=== PATIENT | female | born 1980 | race Two or more races ===

== ENCOUNTER 2025-05-14 17:50 | Inpatient (IN) | payer OTHER ==
[~2025-05-14] VITALS: Ht 157.5 cm; Wt 102.0 kg
[2025-05-14] VITALS (7 sets, daily range): BP systolic 109–150; BP diastolic 60–86; PULSE 85–94; RESP 16–18; TEMP 97.7–98.5; O2SAT 99–100
[2025-05-14] MEDS: SODIUM CHLORIDE 0.9% 500 ML IV ONE (19:10)
[2025-05-14 19:23] LABS: PLATELET COUNT (AUTO) 340 K/uL (150-450); RED BLOOD CELL COUNT(AUTO) 3.26 MIL/uL (4.00-5.20); RED CELL DISTRIBUTION WIDTH 21.2 % (11.5-14.5); WHITE BLOOD COUNT (AUTO) 8.8 K/uL (4.5-11.0)
[2025-05-14 19:27] LABS: CALCIUM, TOTAL 7.9 mg/dL (8.8-10.5); CREATININE 0.57 mg/dL (0.60-1.30); GLOMERULAR FILTR. RATE CALC > 60 mL/min (>60); GLUCOSE,RANDOM 89 mg/dL (70-110); SODIUM SERUM 139 mmol/L (136-145); UREA NITROGEN, BLOOD 6 mg/dL (7-18)
[2025-05-14 19:49] LABS: RBC MORPHOLOGY COMMENT ABNORMAL RBC MORPH
[2025-05-14] MEDS ORDERED: ZOLPIDEM TARTRATE 5 MG TABLET PO PRN (20:00)
[2025-05-14] MEDS ORDERED: IPRATROPIUM BROMIDE 0.5 MG/2.5 ML NEB SOLUTION NEB PRN (20:00)
[2025-05-14] MEDS ORDERED: ONDANSETRON HCL 4 MG/2 ML VIAL IVP PRN (20:00)
[2025-05-14] MEDS ORDERED: ACETAMINOPHEN 325 MG TABLET PO PRN (20:00)
[2025-05-14] MEDS ORDERED: MAGNESIUM HYDROXIDE SUSPENSION 30 ML UDCUP PO PRN (20:00)
[2025-05-14] MEDS ORDERED: BISACODYL 10 MG RECTAL RECTAL SUPPOSITORY PR PRN (20:00)
[2025-05-14] MEDS ORDERED: ALBUTEROL SULFATE 2.5 MG/0.5 ML NEB SOLUTION NEB PRN (20:00)
[2025-05-14 21:37] LABS: % IRON SATURATION 2.2 % (22-44); IRON, SERUM 9.0 mcg/dL (50-175)
[2025-05-15] VITALS (14 sets, daily range): BP systolic 103–142; BP diastolic 48–79; PULSE 75–107; RESP 16–18; TEMP 97.3–98.4; O2SAT 99–100
[2025-05-15 07:11] LABS: PLATELET COUNT (AUTO) 268 K/uL (150-450); RED BLOOD CELL COUNT(AUTO) 3.37 MIL/uL (4.00-5.20); RED CELL DISTRIBUTION WIDTH 21.3 % (11.5-14.5); WHITE BLOOD COUNT (AUTO) 6.3 K/uL (4.5-11.0)
[2025-05-15 07:17] LABS: CALCIUM, TOTAL 7.8 mg/dL (8.8-10.5); CREATININE 0.56 mg/dL (0.60-1.30); GLOMERULAR FILTR. RATE CALC > 60 mL/min (>60); GLUCOSE,RANDOM 88 mg/dL (70-110); SODIUM SERUM 139 mmol/L (136-145); UREA NITROGEN, BLOOD 6 mg/dL (7-18)
[2025-05-15 08:21] LABS: RBC MORPHOLOGY COMMENT ABNORMAL RBC MORPH
[2025-05-15] MEDS: PANTOPRAZOLE SODIUM 40 MG DR TABLET PO SCH (08:25)
[2025-05-15] MEDS ORDERED: SODIUM CHLORIDE 0.9% 1,000 ML ONE (10:51)
[2025-05-15] MEDS: SOD FERRIC GLUC COMPLX/SUCROSE 125 MG in SODIUM CHLORIDE 0.9% 100 ML IV SCH (17:06)
[2025-05-15] MEDS: DOCUSATE SODIUM 100 MG CAPSULE PO SCH (20:31)
[2025-05-15 20:38] LABS: PLATELET COUNT (AUTO) 297 K/uL (150-450); RED BLOOD CELL COUNT(AUTO) 3.92 MIL/uL (4.00-5.20); RED CELL DISTRIBUTION WIDTH 22.2 % (11.5-14.5); WHITE BLOOD COUNT (AUTO) 7.7 K/uL (4.5-11.0)
[2025-05-15 21:25] LABS: PLATELET MORPHOLOGY COMMENT LARGE PLTS PRESENT; RBC MORPHOLOGY COMMENT ABNORMAL RBC MORPH
[2025-05-16 03:27] VITALS: BP 118/55; PULSE 72; RESP 20; TEMP 98.2; O2SAT 98
[2025-05-16 08:21] LABS: % IRON SATURATION 19.4 % (22-44); IRON, SERUM 77.0 mcg/dL (50-175)
[2025-05-16 08:43] VITALS: BP 104/52; PULSE 73; RESP 20; TEMP 97.3; O2SAT 99
[2025-05-16] MEDS ORDERED: DOCU-385 PO (11:55)
[2025-05-16] MEDS ORDERED: FERR325T27 PO (11:58)
== END 2025-05-16 22:04 | DRG 812 ==
LOC: EMS 17:50 → EDH 19:55 → 6S 22:12
PROVIDERS: ADMIT Hospitalist; ATTEND Hospitalist
PROC: 30233N1 Transfusion of Nonautologous Red Blood Cells into Peripheral Vein, Percutaneous Approach (ICD-10-PCS; principal; 2025-05-15)
DX: D50.0 Iron deficiency anemia secondary to blood loss (chronic) (principal); N92.0 Excessive and frequent menstruation with regular cycle; D25.9 Leiomyoma of uterus, unspecified; K21.9 Gastro-esophageal reflux disease without esophagitis
CPT/HCPCS: 80048; 83540; 83550; 85025; 86850; 86900; 86901; 86923; 99285; J2916; J7030; J7040; J7050; P9016